=== PATIENT | female | born 1980 | race Caucasian/White ===

== ENCOUNTER 2016-06-28 04:04 | Emergency (ER) | payer OTHER ==
[2016-06-28 05:03] LABS: BASOPHIL % 0.7 % (0-2)
[2016-06-28 05:04] LABS: PLATELET COUNT 460 x10^3mcL (130-400)
[2016-06-28 05:12] LABS: CALCIUM 8.8 mg/dL (8.5-10.1); CARBON DIOXIDE 24.6 mmol/L (21-32); CHLORIDE SERUM 106 mmol/L (98-107); CREATININE SERUM 0.7 mg/dL (0.6-1.0); GFR1 > 60 mL/min; GLUCOSE SERUM 107 mg/dL (74-106); POTASSIUM SERUM 3.6 mmol/L (3.5-5.1); SODIUM SERUM 140 mmol/L (136-145)
[2016-06-28 05:16] LABS: ALBUMIN 3.6 g/dL (3.4-5.0); ALKALINE PHOSPHATASE 81 U/L (46-116); ALT/SGPT 16 U/L (14-59); AMYLASE 64 U/L (25-115); AST/SGOT 17 U/L (15-37); BILIRUBIN TOTAL 0.25 mg/dL (0.20-1.00); LIPASE 259 IU/L (73-393); TOTAL PROTEIN, SERUM 7.3 g/dL (6.4-8.2)
[2016-06-28 05:40] LABS: UA SPECIFIC GRAVITY >=1.030 (1.005-1.035); urine erythrocyte NEGATIVE (NEGATIVE)
[2016-06-28 05:56] LABS: microscopic required? YES
[2016-06-28 06:33] VITALS: BP 135/74
== END 2016-06-28 06:33 | disposition home or self-care (01) ==
LOC: ED 04:04
PROVIDERS: Emergency Medicine
DX: R10.32 Left lower quadrant pain (principal); R10.11 Right upper quadrant pain; Z98.51 Tubal ligation status